=== PATIENT | female | born 1970 | race Caucasian/White ===

== ENCOUNTER → 2018-05-03 08:28 | Outpatient (CLI) | payer BC, SELFPAY ==
--- NOTE | 2018-05-03 08:42 | MM_ITS ---
MM Dig screening mamm BI w/CAD CAD Screening COMPARISON: Digital mammograms 02/26/2016 and 03/20/2017 INDICATION: There is a history of breast cancer patient's paternal grandmother TECHNIQUE: Standard CC and MLO images were obtained. R2 CAD reviewed. FINDINGS: Scattered fibroglandular densities are seen throughout both breasts. There is a mole marker left breast. Again noted is a small stable asymmetric density upper outer quadrant right breast and a tiny stable nodular density near the axillary tail the left breast. There is no suspicious lesion and there are no suspicious microcalcifications. IMPRESSION: Stable exam no suspicious lesion seen BI-RADS Category: 2 Benign Finding(s) RECOMMENDED FOLLOW-UP: 1YR - 1 YEAR FOLLOW-UP (A letter has been sent to the patient regarding results of the study.)
== END ==
PROVIDERS: PCP Family Medicine; Visit Provider Nurse Practitioner Obstetrics & Gynecology
DX: Z12.31 Encounter for screening mammogram for malignant neoplasm of breast (principal)
CPT/HCPCS: 77067

== ENCOUNTER → 2019-12-20 14:18 | Outpatient (CLI) | payer OTHER, SELFPAY ==
--- NOTE | 2019-12-20 14:30 | XR_ITS ---
PROCEDURE: XR CERVICAL SPINE 5V CLINICAL INDICATION: CERVICALGIA COMPARISON: No exams were available for comparison FINDINGS: There is reversal of the cervical lordosis with minimal anterolisthesis of C3 on C4 of 2 mm. Degenerative disc disease is present at C3-C4 C4-C5 C5-C6 and C6-C7. Mild endplate hypertrophic changes are present. There is mild foraminal narrowing on the right at C5-C6 and C6-C7 and on the left at C3-C4 C4-C5. No cervical ribs. Minimal cervical curvature convex right. IMPRESSION: The level cervical spondylosis with degenerative disc disease and foraminal narrowing as described above Dictated by: Benedict Lainez MD 12/20/2019 18:10 Benedict Lainez MD in [place] 12/20/2019 18:10
== END ==
PROVIDERS: PCP Family Medicine; Visit Provider Nurse Practitioner Family
DX: M54.2 Cervicalgia (principal)
CPT/HCPCS: 72050

== ENCOUNTER → 2020-07-17 09:52 | Outpatient (CLI) | payer OTHER, SELFPAY ==
--- NOTE | 2020-07-17 09:52 | MM_ITS ---
PROCEDURE: MM DIG SCREENING MAMM BI W/CAD Digital Breast Tomosynthesis Included CLINICAL INDICATION: screening xmg There is a history of breast cancer in the patient's paternal grandmother. Patient complains of pain benign left breast for several months COMPARISON: MG DMSB DIG MAMM-SCREEN ALVERTO from 02/26/2016 MG DMSB DIG MAMM-SCREEN ALVERTO W/CAD from 03/20/2017 MG [facility]BI MM Dig screening mamm BI w/CAD from 05/03/2018 TECHNIQUE: Standard CC and MLO images and 3D Tomosynthesis was obtained. R2 CAD reviewed. FINDINGS: Moderate scattered diffuse fibroglandular densities are seen throughout both breasts. There is a stable small benign-appearing nodular density upper-outer quadrant right breast. There is a small nodular density lower left axilla likely. This is stable as well. There is no suspicious lesion and no suspicious microcalcifications. IMPRESSION: Fibrofatty parenchyma with no suspicious lesions seen BI-RAD Category: 1 Negative FOLLOW-UP: 1YR 1 Year Follow-up (A letter has been sent to the patient regarding results of the study.) Dictated by: Dr. Isaiah Danielson MD 07/17/2020 13:15 Dr. Isiaah Danielson MD in [place] 07/17/2020 13:15
== END ==
PROVIDERS: PCP Family Medicine; Visit Provider Nurse Practitioner Obstetrics & Gynecology
DX: Z12.31 Encounter for screening mammogram for malignant neoplasm of breast (principal)
CPT/HCPCS: 77063; 77067

== ENCOUNTER → 2022-05-13 10:08 | Outpatient (CLI) | payer OTHER, SELFPAY ==
[2022-05-13 10:39] LABS: Basophils % 0.5 % (0.1-2.0); Eosinophils % 0.9 % (0.1-12.0); Hematocrit 40.2 % (37.0-47.0); Hemoglobin 12.9 g/dL (12.2-16.2); Lymphocytes % 23.5 % (10-50); Mean Corpuscular HGB Conc 32.1 g/dL (31.8-35.4); Mean Corpuscular Hemoglobin 31.4 pg (27.0-31.2); Mean Corpuscular Volume 97.6 fl (81-99); Mean Platelet Volume 6.8 fl (7.4-10.4); Monocytes # 0.2 K/mm3 (0.1-1.0); Neutrophils % 70.2 % (37.0-80.0); Platelet Count 261 K/mm3 (142-424); Red Blood Count 4.12 M/mm3 (4.20-5.40); Red Cell Distribution Width 13.1 % (11.5-17.5); White Blood Count 4.3 K/mm3 (4.8-10.8)
[2022-05-13 10:57] LABS: Chloride 110 mmol/L (98-107)
[2022-05-13 10:58] LABS: Potassium 4.7 mmoL/L (3.5-5.1); Sodium 142 mmol/L (136-145)
[2022-05-13 11:00] LABS: Alanine Aminotransferase 18 U/L (12-78); Anion Gap 7.7 mEq/L (5-15); Aspartate Amino Transferase 26 U/L (14-36); Blood Urea Nitrogen 15 mg/dl (7-17); Carbon Dioxide 29 mmol/L (22.0-30.0); Estimated Glomerular Filt Rate 75 ml/min (>60); GFR (African American) 91 ML/MIN (>60)
[2022-05-13 11:01] LABS: Albumin Level 4.2 g/dl (3.5-5.0); Albumin/Globulin Ratio 1.6 (1.1-1.8); Alkaline Phosphatase 62 U/L (38-126); Bilirubin,Total 0.5 mg/dl (0.2-1.3); Chol/HDL Ratio 2.9 (1-3.5); Cholesterol 175 mg/dl (140-200); Globulin 2.7 g/dL (1.3-3.2); Glucose 94 mg/dl (74-100); HDL Cholesterol 61 mg/dl (40-60); Total Protein,Serum 6.9 g/dl (6.3-8.2); Triglycerides 97 mg/dl (30-150); VLDL Cholesterol 19 mg/dL (0-40)
[2022-05-13 11:12] LABS: Direct LDL Cholesterol 78.33 mg/dL (100-129)
[2022-05-14 08:36] LABS: FSH 20.2 mIU/mL (.); LH 11.4 mIU/mL (.)
== END ==
PROVIDERS: PCP Family Medicine; Visit Provider Nurse Practitioner Obstetrics & Gynecology
DX: Z01.419 Encounter for gynecological examination (general) (routine) without abnormal findings (principal)
CPT/HCPCS: 80053; 80061; 83001; 83002; 85025

== ENCOUNTER → 2022-05-19 12:29 | Outpatient (CLI) | payer OTHER, SELFPAY ==
--- NOTE | 2022-05-19 12:30 | MM_ITS ---
PROCEDURE INFORMATION: Exam: MG Bilateral Screening 3D Mammography Exam date and time: 05/19/2022 12:22 PM Age: 51 years old Clinical indication: Screening. Her paternal grandmother had breast cancer. TECHNIQUE: Imaging protocol: Bilateral Screening tomosynthesis and 2D mammography including computer-aided detection (CAD) when performed. COMPARISON: 1. MG MM DIG SCREENING MAMM BI W/CAD 07/17/2020 9:51 AM 2. MG SCBI MM Dig screening mamm BI w/CAD 05/03/2018 8:46 AM 3. MG DMSB DIG MAMM-SCREEN ALVERTO W/CAD 03/20/2017 8:41 AM 4. MG DMSB DIG MAMM-SCREEN ALVERTO 02/26/2016 9:10 AM FINDINGS: MAMMOGRAPHY: Breast composition: There are scattered areas of fibroglandular density. Mass: None. Architectural distortion: None. Calcifications: No suspicious calcifications. Asymmetric density: None. Skin thickening: None. Axillary adenopathy: None. IMPRESSION: No mammographic evidence of malignancy. Annual screening is recommended unless otherwise clinically indicated. ASSESSMENT: BI-RADS Category 1: Negative
== END ==
PROVIDERS: PCP Family Medicine; Visit Provider Nurse Practitioner Obstetrics & Gynecology
DX: Z12.31 Encounter for screening mammogram for malignant neoplasm of breast (principal)
CPT/HCPCS: 77063; 77067

== ENCOUNTER 2022-08-05 08:23 | Day surgery (SDC) | payer OTHER, SELFPAY ==
[2022-08-04 10:02] VITALS: BMI 25.8
[2022-08-05] VITALS (7 sets, daily range): BP systolic 77–134; BP diastolic 55–69; PULSE 62–85; RESP 15–18; TEMP 36.2–36.5; O2SAT 96–100
[2022-08-05 09:02] LABS: Urine Pregnancy, HCG Qual. Negative (Negative)
--- NOTE | 2022-08-05 09:56 | P.PN_ITS ---
[facility] Disclaimer: The information contained in this section may have been updated after the patient was seen, as this information can be updated by other users. Medical History No significant past medical history Surgical History H/O tubal ligation Family History Other No significant family history Social History Smoking Status: Never smoker alcohol intake: never substance use type: denies use current occupational status: employed Travel in the last 8 weeks: Inside the [place] housing: house caffeine: Yes [facility] Anesthesia Checklist Patient Identification Patient Identification: Arm Band and Verbal (Name & ) Structural Data Admitted From: Home Planned Operative Procedure/s: Colonoscopy Consent for Planned Operative Procedure(s) Verified: Yes Verified Documents: Surgical Consent NPO Status Verified Time NPO: 06:00 Airway Assessment C-Spine Mobility Assessed: Yes TMJ Mobility Assessed: Yes Dentition: Good Dentition Neurological Assessment Level of Consciousness: Awake, Alert and Appropriate Anesthesia Plan Anesthesia Risk discussed: Yes ASA Class: II Anesthesia Type: MAC
--- NOTE | 2022-08-05 11:00 | HMH.SCOPE ---
Procedure: Date: 08/05/22 Patient Date of :: 1970 Procedure Performed:: Total colonoscopy with biopsy of cecal lesion and polypectomy Indications:: Patient is 51-year-old female. She was referred by Emeyr Valencia for initial screening colonoscopy. She did have a positive Cologuard. Performing Provider:: Alex Alexander MD Referring Provider:: Emery Titus MD Sedation:: MAC sedation Procedure:: Patient history was obtained and appropriate physical examination was performed. Patient's medications and allergies were reviewed. Informed consent was obtained after explaining the benefits, alternatives, and risks of the procedure including, but not limited to, bleeding, perforation, missed lesions, and adverse reaction to anesthesia medications. Patient was transported to endoscopy procedure room. Patient was connected to monitoring devices. Throughout the procedure the patient's blood pressure, pulse, and oxygen saturations were monitored continuously. Patient identification and planned procedure were verified by the staff. Patient was positioned in lateral decubitus position. Digital anorectal exam was performed. Variable stiffness Olympus colonoscope was inserted and advanced under direct visualization to the cecum. Adequacy of the colonic preparation was noted. The colonoscope was then slowly withdrawn while carefully examining the color, texture, anatomy, and integrity of the mucosoa circumferentially. Within the rectum retroflexion was performed. Colonoscope was then withdrawn. Colonic preparation was excellent. Within the cecum just distal to the ileocecal valve there was irregular flat subtle but very widespread sessile lesion. This may be adenomatous. This could not be removed colonoscopically using traditional technique. Multiple biopsies were obtained. In the sigmoid colon she had subtle sessile polyp removed in a piecemeal fashion using cold snare. Findings:: Widespread irregular sessile lesion in the cecum, multiple biopsies obtained Sessile polyp in the sigmoid removed with cold snare in a piecemeal fashion Recommendations:: If there is adenomatous component to the lesion in the cecum she will need additional intervention. Consideration may be given for possible referral for endoscopic mucosal resection versus ileocecal resection surgically. Complications:: None immediately apparent Estimated blood obtained (mL): 2
== END 2022-08-05 11:42 | disposition home or self-care (01) ==
PROVIDERS: PCP Family Medicine; Visit Provider Surgery
PROC: 0DJD8ZZ Inspection of Lower Intestinal Tract, Via Natural or Artificial Opening Endoscopic (ICD-10-PCS; CPT 45380; principal; 2022-08-05 09:30)
DX: R19.5 Other fecal abnormalities (principal); D12.0 Benign neoplasm of cecum
CPT/HCPCS: 45380; 45385; 81025; J2704